=== PATIENT | female | born 1980 | race Caucasian/White ===

== ENCOUNTER 2024-03-09 08:51 | Outpatient (CLI) | payer OTHER, SELFPAY ==
--- NOTE | ~2024-03-09 | MM_ITS ---
EXAMINATION: MM screening l[facility] BI w christofer HISTORY: Screening TECHNIQUE: Craniocaudal and mediolateral oblique 3-D tomosynthesis images were obtained and synthetic 2-D images were generated. CAD analysis was submitted and interpreted. COMPARISON: No prior mammogram is available for comparison at this institution. BREAST PARENCHYMAL COMPOSITION: Dense: The breasts are heterogeneously dense, which may obscure small masses FINDINGS: There is no evidence of suspicious mass, calcification, or architectural distortion to sugg est malignancy in either breast. There has been no suspicious interval change. IMPRESSION: 1. No mammographic evidence of malignancy. 2. Recommend routine screening mammography in one year. BI-RADS Category 1: Negative Reviewed, dictated and finalized at location B. [employer]
== END 2024-03-09 08:52 | disposition home or self-care (01) ==
LOC: ANHIMG 08:55
PROVIDERS: PCP Emergency Medicine; Visit Provider Emergency Medicine
DX: Z12.31 Encounter for screening mammogram for malignant neoplasm of breast (principal)
CPT/HCPCS: 77063; 77067

== ENCOUNTER 2024-03-09 09:41 | Outpatient (CLI) | payer OTHER, SELFPAY ==
[2024-03-09 14:10] LABS: Alanine Aminotransferase 12 U/L (6-35); Alkaline Phosphatase 65 U/L (38-126); Anion Gap 6 mmol/L (4-12); Aspartate Amino Transferase 66 U/L (14-36); Bilirubin,Total 0.5 mg/dL (0.2-1.3); Blood Urea Nitrogen 12 mg/dL (7-17); Calcium 9.2 mg/dL (8.4-10.2); Carbon Dioxide 27 mmol/L (22-30); Chloride 106 mmol/L (98-107); Cholesterol 161 mg/dL (0-200); Estimated Glomerular Filt Rate > 60; Glucose 71 mg/dL (65-110); HDL Direct 67 mg/dL; Potassium 4.4 mmol/L (3.4-5.0); Sodium 139 mmol/L (137-145); Triglycerides 79 mg/dL (<150)
[2024-03-09 14:21] LABS: LDL Cholesterol Direct 67 mg/dL
[2024-03-09 14:33] LABS: Hemoglobin A1C 5.3 % (<5.7)
== END 2024-03-09 09:42 | disposition home or self-care (01) ==
LOC: ANHGOSHLAB 09:42
PROVIDERS: PCP Emergency Medicine; Visit Provider Emergency Medicine
DX: E78.5 Hyperlipidemia, unspecified (principal)
CPT/HCPCS: 36415; 80053; 80061; 83036

== ENCOUNTER 2024-09-08 11:34 | Outpatient (CLI) | payer OTHER, SELFPAY ==
--- OUTSIDE RECORDS SUMMARY | 2024-09-08 11:39 | XMS_ITS | Data Portability ---
Author Organization [facility] blogfoster, Main Office Address [address] [place] [address] Assessment No assessment recorded. Plan of Treatment Reminders Order Date Submit Date Provider Last Modified By Organization Details Last Modified Time Details Appointments None recorded. Lab lipid panel, serum 2022 023 [facility] [place], [address], 3 08:05:44 CMP, serum or plasma 2022 023 [facility] [place], [address], 3 08:05:44 Referral None recorded. Procedures None recorded. Surgeries None recorded. Imaging MAMMO, screening, bilateral 2022 023 [facility], [address] [place] [address] [place], [address], 3 14:58:10 Medication Orders Estarylla 0.25 mg-0.035 mg tablet 2022 023 [facility], [facility], [place], [address], 3 15:54:23 Patient TargetsNo targets recorded. Patient InstructionsNo instructions recorded. Reason for Referral None Reported. Results Created Date Observation Date Name Description Value Unit Range Abnormal Flag Note LastModifiedBy Organization Detail LastModifiedTime 09/09/19 21 09/08/2020 CMP, serum or plasm a sodium 139 mmol/ L 137-14 5 Not Available [facility] (Lab) [address] [place], [address], 09/08/2020 14:15:44 09/09/19 21 09/08/2020 CMP, serum or plasm a potassium 3.9 mmol/ L 3.5-5. 1 Not Available [facility] (Lab) [address] [place], [address], 09/08/2020 14:15:44 09/09/19 21 09/08/2020 CMP, serum or plasm a chloride 105 mmol/ L 98-107 Not Available [facility] (Lab) [address] [place], [address], 09/08/2020 14:15:44 09/09/19 21 09/08/2020 CMP, serum or plasm a carbon dioxide 27 mmol/ L 22-30 Not Available [facility] (Lab) [address] [place], [address], 09/08/2020 14:15:44 09/09/19 21 09/08/2020 CMP, serum or plasm a agap 10.9 mmol/ L 14-22 low Not Available [facility] (Lab) [address] [place], [address], 09/08/2020 14:15:44 09/09/19 21 09/08/2020 CMP, serum or plasm a glucose 87 mg/dL 70-99 Not Available [facility] (Lab) [address] [place], [address], 09/08/2020 14:15:44 09/09/19 21 09/08/2020 CMP, serum or plasm a BUN 12 mg/dL 8-19 Not Available [facility] (Lab) [address] [place], [address], 09/08/2020 14:15:44 09/09/19 21 09/08/2020 CMP, serum or plasm a creatinine 0.78 mg/dL 0.66-1 .25 Not Available [facility] (Lab) [address] [place], [address], 09/08/2020 14:15:44 09/09/19 21 09/08/2020 CMP, serum or plasm a GFR >60 Refer ence Range : [place] ge GFR Healt hy Adult : >60 mL/mi n/1.7 3 m2 Chron ic Kidne y Disea se: 15-60 mL/mi n/1.7 3 m2 Kidne y Failu re: <15/m L/min /1.73 m2 www.n iddk. nih.g ov MDRD study equat ion hasn' t been valid ated in child meagan <18 yrs of age, pregn ant women , the elder ly >85 yrs of age, or in some racia l or ethni c subgr oups, suc as Hispa nics. Outsi de the valid ated stephani eters , estim ated GFR is less accur ate requi ring clini january judgm ent on a case by case basis . Clini january inter preta tion for other races and ages must be made by the clini alexia . Futhe rmore , any of th e limit ation s with the use of serum creat inine relat ed to nutri rose l statu s o r medic ation usage hasn' t accou nted for the MDRD Study equat ion. For perso ns < 18 yrs of age, a pedia tric GFR calcu lator can be locat ed on the [facility] websi te: https ://elle w.kid salome.o rg/pr ofess ional s/kdo qi/gf r_cal culat or Not Available [facility] (Lab) [address] [place], [address], 09/08/2020 14:15:44 09/09/19 21 09/08/2020 CMP, serum or plasm a alkaline phosphatase 58 U/L 38-126 Not Available [facility] (Lab) [address] [place], [address], 09/08/2020 14:15:44 09/09/19 21 09/08/2020 CMP, serum or plasm a alanine aminotransfe rase 6 U/L 0-35 Not Available [facility] (Lab) [address] [place], [address], 09/08/2020 14:15:44 09/09/19 21 09/08/2020 CMP, serum or plasm a aspartate aminotransfe rase 19 U/L 15-37 Not Available [facility] (Lab) [address] [place], [address], 09/08/2020 14:15:44 09/09/19 21 09/08/2020 CMP, serum or plasm a bilirubin, total 0.40 mg/dL 0.20-1 .30 Not Available [facility] (Lab) [address] [place], [address], 09/08/2020 14:15:44 09/09/19 21 09/08/2020 CMP, serum or plasm a calcium 9.2 mg/dL 8.4-10 .2 Not Available [facility] (Lab) [address] [place], [address], 09/08/2020 14:15:44 09/09/1909/08/2020 CMP, serum or plasm a total protein 6.2 g/dL 6.3-8. 2 low Not Available [facility] (Lab) [address] [place], [address], 09/08/2020 14:15:44 09/09/19 21 09/08/2020 CMP, serum or plasm a albumin 4.0 g/dL 3.4-5. 0 Not Available [facility] (Lab) [address] [place], [address], 09/08/2020 14:15:44 09/09/19 21 09/08/2020 CMP, serum or plasm a globulin 2.2 g/dL 2.6-4. 2 low Not Available [facility] (Lab) [address] [place], [address], 09/08/2020 14:15:44 09/09/19 21 09/08/2020 CMP, serum or plasm a A/G ratio 1.8 ratio 1.0-2. 0 Not Available [facility] (Lab) [address] [place], [address], 09/08/2020 14:15:44 09/09/19 21 09/08/2020 lipid panel , serum cholesterol 212 mg/dL 140-19 9 high NIH JAKE NSUS RECOM MENDA TION FOR CANDI STERO L: ADULT CHILD LOW RISK: <200 <170 BORDE RLINE : <200- 239 ----- HIGH RISK: >240 >200 Not Available [facility] (Lab) [address] [place], [address], 09/08/2020 14:15:39 09/09/1909/08/2020 lipid panel , serum triglyceride s 136 mg/dL 0-150 NIH JAKE NSUS REPOR T RECOM MENDA TION FOR TRIGL YCERI KEEGAN: ADULT CHILD LOW RISK: <150 ----- BODER LINE: 150-1 99 ----- HIGH RISK: >200 ----- Not Available [facility] (Lab) [address] [place], [address], 09/08/2020 14:15:39 09/09/1909/08/2020 lipid panel , serum HDL cholesterol 58 mg/dL 40- Not Available [facility] (Lab) [address] [place], [address], 09/08/2020 14:15:39 09/09/19 21 09/08/2020 lipid panel , serum LDL cholesterol, calculated 127 mg/dL 0-130 NIH JAKE NSUS REPOR T RECOM MENDA TIONS FOR LDL: ADULT CHILD LOW RISK <130 <110 (OPTI MAL LDL) <100 ----- SIERRA RLINE : 130-1 59 ----- HIGH RISK: >160 >130 A TRIGL YCERI DE RESUL T >400 INVAL IDATE S THE CALCU LATIO N FOR LDL FRACT IONAT ION - THE LDL RESUL T WILL NOT BE REPOR LEFTY. Not Available [facility] (Lab) [address] [place], [address], 09/08/2020 14:15:39 11/08/19 23 11/09/2022 LIPID PANEL (REFL ) cholesterol, total 242 mg/dL <200 high Not Available [facility] [address] [address] [place], [address], 11/09/2022 11:25:02 11/08/19 23 11/09/2022 LIPID PANEL (REFL ) HDL cholesterol 55 mg/dL > or = 50 normal Not Available [facility] [address] [address] [place], [address], 11/09/2022 11:25:02 11/08/19 23 11/09/2022 LIPID PANEL (REFL ) triglyceride s 147 mg/dL <150 normal Not Available [facility] [address], [address], 11/09/2022 11:25:02 11/08/19 23 11/09/2022 LIPID PANEL (REFL ) LDL-choleste rol 160 mg/dL _(january c) high Refer ence range : <100 Linda able range <100 mg/dL for prima ry preve ntion ; <70 mg/dL for patie nts with CHD or diabe tic patie nts with > or = 2 CHD risk facto rs. LDL-C is now calcu lated using the Beth n-Hop kins calcu latdann n, which is a valid ated novel nora finnegan r accur acy than the Fried girma equat ion in the estim ation of LDL-C . Beth schneider SS et al. DIGNA. 2013; 310(1 9): 2061- 2068 (http ://ed ucati on.Qu estDi kory tics. com/f aq/FA Q164) Not Available [address] [address] [place], [address], 11/09/2022 11:25:02 11/08/19 23 11/09/2022 LIPID PANEL (REFL ) chol/HDLC ratio 4.4 (calc ) <5.0 normal Not Available [address] [address] [address] , [place], [address], 11/09/2022 11:25:02 11/08/19 23 11/09/2022 LIPID PANEL (REFL ) non HDL cholesterol 187 mg/dL _(january c) <130 high For patie nts with diabe sudeep plus 1 major ASCVD risk facto r, treat ing to a non-H DL-C goal of <100 mg/dL (LDL- C of <70 mg/dL ) is consi dered a thera peuti c optio n. Not Available [address], [address], 11/09/2022 11:25:02 11/08/19 23 11/09/2022 SPECI MEN INTEG RITY COMPR OMISE D specimen integrity compromised Whole blood , unspu n or parti ally spun gel barri er tube was recei jody more than 6 hours since colle ction . A false eleva tion of K, Phos and LD as well as a false decre ase in gluco se may occur due to prolo nged conta ct with red cells . Not Available [facility] [address] [address] [place], [address], 11/09/2022 11:25:04 11/08/19 23 11/09/2022 COMPR EHENS LAURA METAB OLIC PANEL glucose 43 mg/dL 65-99 low Fasti ng refer ence inter griffin Not Available [facility] [address] [address] [place], [address], 11/09/2022 11:25:04 11/08/19 23 11/09/2022 COMPR EHENS LAURA METAB OLIC PANEL urea nitrogen (BUN) 6 mg/dL 7-25 low Not Available [address], [address], 11/09/2022 11:25:04 11/08/19 23 11/09/2022 COMPR EHENS LAURA METAB OLIC PANEL creatinine 0.91 mg/dL 0.50-0 .99 normal Not Available [address], [address], 11/09/2022 11:25:04 11/08/19 23 11/09/2022 COMPR EHENS LAURA METAB OLIC PANEL eGFR 81 mL/mi n/1.7 3m2 > or = 60 normal Not Available [address], [address], 11/09/2022 11:25:04 11/08/19 23 11/09/2022 COMPR EHENS LAURA METAB OLIC PANEL BUN/creatini ne ratio 7 (calc ) 6-22 normal Not Available [address], [address], 11/09/2022 11:25:04 11/08/19 23 11/09/2022 COMPR EHENS LAURA METAB OLIC PANEL sodium 142 mmol/ L 135-14 6 normal Not Available [address], [address], 11/09/2022 11:25:04 11/08/19 23 11/09/2022 COMPR EHENS LAURA METAB OLIC PANEL potassium 4.1 mmol/ L 3.5-5. 3 normal Not Available [address], [address], 11/09/2022 11:25:04 11/08/19 23 11/09/2022 COMPR EHENS LAURA METAB OLIC PANEL chloride 106 mmol/ L 98-110 normal Not Available [address], [address], 11/09/2022 11:25:04 11/08/19 23 11/09/2022 COMPR EHENS LAURA METAB OLIC PANEL carbon dioxide 24 mmol/ L 20-32 normal Not Available [address], [address], 11/09/2022 11:25:04 11/08/19 23 11/09/2022 COMPR EHENS LAURA METAB OLIC PANEL calcium 9.0 mg/dL 8.6-10 .2 normal Not Available [address], [address], 11/09/2022 11:25:04 11/08/19 23 11/09/2022 COMPR EHENS LAURA METAB OLIC PANEL protein, total 5.9 g/dL 6.1-8. 1 low Not Available [address], [address], 11/09/2022 11:25:04 11/08/19 23 11/09/2022 COMPR EHENS LAURA METAB OLIC PANEL albumin 4.0 g/dL 3.6-5. 1 normal Not Available [address], [address], 11/09/2022 11:25:04 11/08/19 23 11/09/2022 COMPR EHENS LAURA METAB OLIC PANEL globulin 1.9 g/dL_ (calc ) 1.9-3. 7 normal Not Available [address], [address], 11/09/2022 11:25:04 11/08/19 23 11/09/2022 COMPR EHENS LAURA METAB OLIC PANEL albumin/glob ulin ratio 2.1 (calc ) 1.0-2. 5 normal Not Available [address], [address], 11/09/2022 11:25:04 11/08/19 23 11/09/2022 COMPR EHENS LAURA METAB OLIC PANEL bilirubin, total 0.5 mg/dL 0.2-1. 2 normal Not Available [address] [address] [place], [address], 11/09/2022 11:25:04 11/08/19 23 11/09/2022 COMPR EHENS LAURA METAB OLIC PANEL alkaline phosphatase 58 U/L 31-125 normal Not Available [address] [address] [place], [address], 11/09/2022 11:25:04 11/08/19 23 11/09/2022 COMPR EHENS LAURA METAB OLIC PANEL AST 14 U/L 10-30 normal Not Available [address] [address] [place], [address], 11/09/2022 11:25:04 11/08/19 23 11/09/2022 COMPR EHENS LAURA METAB OLIC PANEL ALT 7 U/L 6-29 normal Not Available [address] [address] [place], [address], 11/09/2022 11:25:04 09/09/19 21 09/08/2020 MAMMO , scree evgeny, digit al, bilat eral No observ ation record ed. [id number] [facility] (Imaging) [address] [place], [address], 06/06/2022 06:48:57 09/09/19 21 MAMMO , scree evgeny, digit al, bilat eral [facility] [address] [place] [address] Patien t Name: ANNE-MARIE LAURA Access ion #: [id number] Sex: F : 1980 6 Locati on: MO2 Attend ing Physic cyndi: DANIELLE STERLING RUNDA Orderi ng Physic cyndi: DANIELLE STERLING, JESSICADA Exam Date: 09/09/19 8:05 AM Exam Name: DIGITA L YENY BILAT SCREEN Admitt ing Diagno sis(es ): RADIOL OGY REPORT - FINAL EXAM: MG DIGITA L YENY BILAT SCREEN HISTOR Y: Screen ing mammog kianna COMPAR [place]: Baseli ne TECHNI QUE: Bilate ral CC and MLO views of the breast s were perfor med. Digita l Mammog silvio images were obtain ed. CAD (compu ter assist ed detect ion) was utiliz ed. FINDIN GS: The breast s are hetero geneou sly dense, which may obscur e small masses . Right breast : There is an area of asymme tric fibrog landul ar densit y within the deep supero latera l aspect of the or right breast . Page 1 of 2 [facility] Pati t Name: ANNE-MARIE LAURA Access ion #: [id number] Sex: F : 1980 6 Exam Date: 09/09/19 8:05 AM Exam Name: DIGITA L YENY BILAT SCREEN Admitt ing Diagno sis(es ): Left breast : There is an area of asymme try noted on the cranio caudad view and centra lly on the cranio caudad view. IMPRES ISAAC: BIRADS 0: Assess ment incomp lete. Need additi onal imagin g evalua tion. Recomm end additi onal imagin g of the areas of asymme try within the right left breast . If the asymme tries within either the left or the right breast persis t, ultras ound should be perfor med. Create d and electr onical ly signed by: Donte hendricks MD Signed Date: 09/09/19 10:11 AM (CT) Dictat ed by: Donte hendricks MD (CT) (CT) Page 2 of 2 [id number] [facility] (Imaging) [address] [place], [address], 06/06/2022 06:48:57 10/15/19 21 10/14/2020 imagi ng/di agnos tic resul t No observ ation record ed. [id number] [facility] [address], [place], [address], 06/06/2022 06:48:57 12/07/19 21 diagn ostic /asiya speci al views [facility] [address], [place] [address] Patien t Name: PONCHO Schneider ANNE-MARIE R Access ion #: [id number] Sex: F : 1980 8 Locati on: RA2 Attend ing Physic cyndi: ELKHAT IB, RUNDA Orderi ng Physic cyndi: ELKHAT IB, RUNDA Exam Date: 021 10:43 AM Exam Name: MG DIAG BILAT SPECIA L VIEW Admitt ing Diagno sis(es ): RADIOL OGY REPORT - FINAL EXAM: MG DIAG BILAT SPECIA L VIEW HISTOR Y: abnorm al mammog kianna 40-yea r-old female with bilate ral breast asymme try seen on screen ing mammog silvio. COMPAR [place]: 2020 TECHNI QUE: Bilate ral breast spot compre ssion views were perfor med. Digita l Mammog silvio images were obtain ed. FINDIN GS: The bilate ral breast asymme tries seen on recent mammog silvio resolv es with spot compre ssion. No suspic ious findin gs are identi fied here. IMPRES ISAAC: Page 1 of 2 [facility] Patien t Name: FARHANNIKO NaunANNE-MARIE Access ion #: [id number] Sex: F : 1980 8 Exam Date: 021 10:43 AM Exam Name: MG DIAG BILAT SPECIA L VIEW Admitt ing Diagno sis(es ): BI-RAD S 1. Negati ve. Recomm end return ing to annual screen ing mammog silvio. Accord ing to the [employer], yearly mammog edita are recomm ended starti ng at age 40 and contin uing as long as the woman is in good health . Clinic al Breast Exam should be part of the period ic health exam-a bout every 3 years for women in their 20s and 30s and every year for women 40 and over. Breast self-e xam is an option for women in their 20s. Any breast change noted on the breast self-e xam she would be report ed prompt ly to the jason thakur's the [facility] er. A negati ve mammog silvio report should not discou rage follow -up or biopsy of a clinic ally signif icant findin g and/or abnorm ality. Dense breast tissue may obscur e small neopla sms. This jason thakur has been entere d into a mammog silvio remind er system with a target date for her next mammog kianna. Create d and electr onical ly signed by: Sabas ramos MD Signed Date: 11:10 AM (CT) Dictat ed by: Sabas ramos MD DD: 11:10 AM (CT) DT: 11:10 AM (CT) Page 2 of 2 [id number] [facility] (Imaging) [address] [place], [address], 06/06/2022 06:48:57 12/07/19 21 12/06/2020 MAMMO , diagn ostic , bilat eral No observ ation record ed. [id number] [facility] [address] [place], [address], 06/06/2022 06:48:57 11/02/19 23 MAMMO , scree evgeny, digit al, bilat eral [facility] [address] [place] [address] [phone] Jason thakur Name: ANNE-MARIE LAURA Access ion #: [id number] Sex: F : 1980 9 Dictat ed By: Fernando ewing Attend ing Physic cyndi: ELKHAT IB, RUNDA Orderi ng Physic cyndi: ELKHAT IB, RUNDA Exam Date: 2022 12:46 PM Exam Name: MG BECCA Lawrence YENY BILAT SCREEN Admitt ing Diagno sis(es ): CLINIC AL HISTOR Y: Screen ing exam, no breast compla ints. No person al histor y of breast cancer or prior breast interv ention . Family histor y of breast cancer in her matern al grandm other at 85 and matern al aunt at age 60. COMPAR [place]: Prior mammog kianna dated 021. TECHNI QUE: Full field bilate ral becca l mammog silvio was perfor med in the CC and MLO projec tions. CAD was utiliz ed. FINDIN GS: The breast s are hetero geneou sly dense, which may obscur e small masses (categ ory C). No suspic ious mass, terrance ectura l distor tion, or suspic ious microc alcifi cation s are seen. The axilla e, skin and nipple s are normal . IMPRES ISAAC: Normal mammog kianna. RECOMM ENDATI ONS: In the absenc e of new breast compla ints, annual screen ing is recomm ended. The patien t will be notifi ed of the mammog silvio result s per hospit al protoc ol. BI-RAD S CATEGO RY: 1: Negati ve. Electr onical ly Signed by: Fernando ewing at 2022 13:48: 57 PM Page [address] (Imaging) [address] [place], [address], 11/02/2022 09:02:13 11/02/19 23 11/01/2022 MAMMO , scree evgeny, bilat eral No observ ation record ed. [address] [place], [address], 11/02/2022 09:02:14 Result Notes None recorded. Problems Name Problem SNOMED Code Status Onset Date Resolution Date Notes Provider Name and Address Organization Details Recorded Time Gastroenteriti s 29206554 Active Not Available [facility] 3 07:55:36 Depressive disorder 32290757 Active Not Available [facility] 3 07:55:36 Pain of multiple joints 07555873 Active Not Available [facility] 3 07:55:36 Eczema 62420602 Active Not Available [facility] 3 07:55:36 Anxiety 45294976 Active Not Available [facility] 3 07:55:36 Hemorrhoids 53509945 Active Not Available [facility] 3 07:55:36 Neck pain 75673801 Active Not Available [facility] 3 07:55:36 Hyperlipidemia 24026884 Active 2022 Not Available [facility] 3 07:55:36 Problem Notes None recorded. Procedures Surgical History Date Name Laterality Status Provider Name and Address Organization Details Recorded Time Dilation and curettage completed Not Available [facility] 06/06/2022 06:39:07 Imaging Results None recorded. Procedure Notes None recorded. Medical Equipment None Reported. Medications Name Sig Start Date Stop Date Status Note LastModified by Organization Details LastModified Time atorvastati n 10 mg tablet Take 1 tablet every day by oral route. active Not Available Not Available No t Available azithromyci n 250 mg tablet TAKE 2 TABLETS BY MOUTH TODAY, THEN TAKE 1 TABLET DAILY FOR 4 DAYS 01/21 completed Not Available Not Available Not Available amoxicillin 875 mg tablet 01/21 completed Not Available Not Available Not Available alprazolam 0.25 mg tablet Take 1 tablet(s) 3 times a day by oral route as needed. active Not Available Not Available No t Available norgestimat e-ethinyl estradiol 0.18mg/0.21 5mg/0.25mg- 0.035mg(28) tablet 1 po daily active Not Available Not Available No t Available azelastine 137 mcg (0.1 %) nasal spray INHALE 1 SPRAY IN EACH NOSTRIL EVERY 12 HOURS 01/21 completed Not Available Not Available Not Available Cheratussin AC 10 mg-100 mg/5 mL oral liquid TAKE 10ML BY MOUTH EVERY 6 HOURS 01/21 completed Not Available Not Available Not Available Anusol-HC 25 mg rectal suppository Insert 1 supposito ry 3 times a day by rectal route for 14 days. 03/04 completed Not Available Not Available Not Available Hypercare 20 % topical solution APPLY ONCE EVERY DAY BY TOPICAL ROUTE 01/21 completed Not Available Not Available Not Available bupropion HCl XL 300 mg 24 hr tablet, extended release Take 1 tablet every day by oral route. 06/11 completed Not Available Not Available Not Available bupropion HCl XL 150 mg 24 hr tablet, extended release Take 1 tablet every day by oral route. 06/11 completed Not Available Not Available Not Available Estarylla 0.25 mg-0.035 mg tablet TAKE 1 TABLET DAILY active Not Available Not Available No t Available Vitals Date Recorded Body mass index (BMI) Body height Oxygen saturation Oxygen saturation in Arterial blood by Pulse oximetry Heart rate Body temperature Body weight Systolic blood pressure Diastolic blood pressure Provider Name and Address Organization Details Last Updated DateTime 1 28.1 kg/m2 167.64 cm 98 % 98 % 79 /min 97.4 [degF] 06952.0 7 g 122 mm[Hg] 78 mm[Hg] Not Available [facility] 3 06:40:00 Date Recorded Body height Body mass index (BMI) Body weight Body temperature Heart rate Oxygen saturation Oxygen saturation in Arterial blood by Pulse oximetry Systolic blood pressure Diastolic blood pressure Provider Name and Address Organization Details Last Updated DateTime 3 167.64 cm 28.2 kg/m2 64183.6 6 g 97.7 [degF] 78 /min 99 % 99 % 102 mm[Hg] 80 mm[Hg] FRANCISCA Noel [place] - [facility] [place] [facility] 3 15:42:09 Social History Question Answer Notes LastModified by Organizat ion Details LastModified Time Tobacco Smoking Status Never Smoker Not Available [facility] 06/06/2022 06:38:49 In The 14 Days Before Symptom Onset, Have You Had Close Contact With A Laboratory-confirm ed COVID-19 While That Case Was Ill? No [id number] Information not available 06/06/2022 In The 14 Days Before Symptom Onset, Have You Had Close Contact With A Person Who Is Under Investigation For COVID-19 While That Person Was Ill? No [id number] Information not available 06/06/2022 Which Illicit Or Recreational Drugs Have You Used? Marijuana [id number] Information not available 06/06/2022 Sex: Unknown Functional Status Question Answer Note LastModified by Organizat ion Details LastModified Time What is your level of alcohol consumption? Occasional [id number] Information not available 06/06/2022 Mental Status None recorded. Family History Relationship Description Onset Age of this Age Resolved Age Notes LastModified by Organization Details LastModified Time Maternal Grandmother Family history of malignant neoplasm breast and gland [id number] Not available 06/06/2022 06:39:09 Maternal Aunt Family history of malignant neoplasm breast [id number] Not available 06/06/2022 06:39:09 Medical History No medical history recorded. Gynecological HistoryNo gynecological history recorded. Obstetrics History GPAL:G 0 P 0 0 0 0 Past Encounters Encounter ID Performer Location Encounter Start Date Encounter Closed Date Diagnosis/Indication Diagnosis SNOMED-CT Code Diagnosis ICD10 Code Diagnosis Note [id number] Tamara Davison MD [facility] Artem mackenzie [address] [place] [address] 08/29/2020 00:00:00 08/29/2020 20:55:55 [id number] Tamara Davison MD [facility] Artem mackenzie [address] [place] [address] 10/30/2022 15:28:32 10/30/2022 16:16:03 Adult health examination [id number] Z00.00 Hyperlipidemia 18324090 E78.5 Screening for malignant neoplasm of breast 205018188 Z12.[address] [facility] [id number] Z30.9 Health Concerns Section Related Observation LastModified by Organization Detai ls LastModified Time None Recorded Concern Status LastModified by Organization Details LastModified Time None Recorded Advance Directives Directive None Recorded Payers Encounter Date Sequence Insurance Name Policy Number Policy Solo Covered Member ID Solo Member ID Guarantor Name 10/30/2022 1 [employer] [id number] Pradeep Lindo [id number] Anne-Marie Lindo Notes Date Note Type Note Provider Name and Address Organization Details Recorded Time 10/30/2022 text/html Here today for annual physical. Will be due for [employer] next year. Last pap was 08/26. Mammogram is due. MGM had colon cancer needs colonoscopy in 3 years. Is due for JULIA Davison MD [address] [place] [address], [place] [address], [place], [address], [place] [facility] 10/30/2022 21:15:39 OBGyn Episode No OBEpisode recorded.
--- OUTSIDE RECORDS SUMMARY | 2024-09-08 11:39 | XMS_ITS | Clinical Summary ---
Author Organization [facility] Address [address] [address] Phone Care Team Providers Care Stewarding Supervisor Name Role Phone Eric Lyles Primary Care Provider Unavaila ble Allergies No known active allergies Medications PREVIFEM 0.25-35 MG-MCG Tablet 07/16/2016 Activ e Omeprazole 20 MG Tablet Delayed Response Take by mouth. Active Social History Tobacco Use Types Packs/Day Years Used Date Smoking Tobacco: Some Days Cigarettes 0.1 15 Tobacco Cessation:Ready to Q uit: Yes; Counseling Given: Yes Alcohol Use Standard Drinks/Week Comments No 1 (1 standard drink = 0.6 oz pur e alcohol) Comments Unknown Sex and Gender Information Value Date Recorded Sex Assigned at Not on file Legal Sex Female 8:51 PM CDT Gender Identity Not on file Sexual Orientation Not on file Last Filed Vital Signs Vital Sign Reading Time Taken Comments Blood Pressure 118/82 08/29/2016 1:45 PM CDT Pulse 72 08/29/2016 1:45 PM CDT Temperature - - Respiratory Rate 18 08/29/2016 1:45 PM CDT Oxygen Saturation 96% 08/29/2016 1:45 PM CDT Inhaled Oxygen Concentration - - Weight 66 kg (145 lb 6.4 oz) 08/29/2016 1:45 PM CDT Height 167.6 cm (5' 6) 08/29/2016 1:45 PM CDT Body Mass Index 23.47 08/29/2016 1:45 PM CDT Plan of Treatment Health Maintenance Due Date Last Done Comments Hepatitis C Virus (HCV) Screening 1980 TdaP Immunization 1980 Hepatitis B Immunization (1 of 3 - 19+ 3-dose series) 08/22/1999 Pap Smear 2001 Cervical Cancer Screening (CCS) 2010 HPV/Cotest 2010 Discussion re Starting/Frequ ency of Mammograms 2020 Influenza Immunization (#1) 2023 SARS-COV-2 Immunization ( season) 2023 Respiratory Syncytial Virus (RSV) Immunization (Adult) (1 - 1-dose 75+ series) 08/22/2055 Meningococcal Immunization (ACWY) Aged Out No longer eligible based on patient's age to complete this topic Pneumococcal Immunization Combined Aged Out No longer eligible based on patient's age to complete this topic Rotavirus Immunization Aged Out No lo nger eligible based on patient's age to complete this topic Care Teams Stewarding Supervisor Relationship Specialty Start Date End Date Eric Lyles PCP - General Internal Medicine 08/06/16
[2024-09-08 19:13] LABS: Hematocrit 42.5 % (37.0-47.0); Hemoglobin 13.5 g/dL (12.0-15.0); Mean Corpuscular HGB Conc 31.8 g/dl (32-36); Mean Corpuscular Hemoglobin 28.9 pg (26-34); Mean Platelet Volume 11.2 fl (7.4-10.4); Platelet Count Result 209 k/mm3 (150-375); Red Blood Count 4.67 M/mm3 (4.2-5.4); Red Cell Distribution Width 13.8 % (11.5-14.5); White Blood Count 9.2 K/mm3 (4.5-10.0)
[2024-09-08 19:56] LABS: Iron 101 ug/dL (37-170)
[2024-09-08 20:06] LABS: Percent Iron Saturation 28 % (20-50)
[2024-09-08 21:26] LABS: Ferritin 9.67 ng/mL (6.24-137)
[2024-09-08 22:19] LABS: Alanine Aminotransferase 11 U/L (6-35); Albumin Level 3.7 g/dL (3.5-5.1); Alkaline Phosphatase 65 U/L (38-126); Anion Gap 3 mmol/L (4-12); Aspartate Amino Transferase 27 U/L (14-36); Bilirubin,Total 0.5 mg/dL (0.2-1.3); Blood Urea Nitrogen 9 mg/dL (7-17); Calcium 9.4 mg/dL (8.4-10.2); Carbon Dioxide 27 mmol/L (22-30); Chloride 108 mmol/L (98-107); Cholesterol 160 mg/dL (0-200); Estimated Glomerular Filt Rate > 60; Glucose 90 mg/dL (65-110); HDL Direct 65 mg/dL; Potassium 4.7 mmol/L (3.4-5.0); Sodium 138 mmol/L (137-145); Total Protein 6.1 g/dL (6.3-8.2); Triglycerides 86 mg/dL (<150)
[2024-09-08 22:24] LABS: Vitamin D 25 Hydroxy 17.1 ng/mL
[2024-09-08 22:30] LABS: LDL Cholesterol Direct 68 mg/dL
[2024-09-08 23:25] LABS: Folic Acid 15.4 ng/mL (2.76->20)
[2024-09-08 23:35] LABS: Hemoglobin A1C 5.2 % (<5.7)
[2024-09-12 15:17] LABS: Vitamin B2 7.7 nmol/L (6.2-39.0)
[2024-09-13 12:48] LABS: Vitamin B1 10 nmol/L (8-30)
== END 2024-09-08 11:35 | disposition home or self-care (01) ==
LOC: ANHGOSHLAB 11:35
PROVIDERS: PCP Nurse Practitioner Family; Visit Provider Nurse Practitioner Family
DX: Z76.89 Persons encountering health services in other specified circumstances (principal); N94.10 Unspecified dyspareunia; R53.83 Other fatigue; Z30.9 Encounter for contraceptive management, unspecified; E66.3 Overweight; E78.5 Hyperlipidemia, unspecified; E56.9 Vitamin deficiency, unspecified; E61.1 Iron deficiency
CPT/HCPCS: 36415; 80053; 80061; 82306; 82607; 82728; 82746; 83036; 83540; 83550; 84207; 84252; 84425; 84443; 85027

== ENCOUNTER 2024-09-30 13:21 | Outpatient (CLI) | payer OTHER, SELFPAY ==
--- NOTE | ~2024-09-30 | US_ITS ---
EXAM: PELVIC ULTRASOUND HISTORY: N94.10 - Unspecified dyspareunia COMPARISON: None. FINDINGS: UTERUS: 9.9 x 5.0 x 5.5 cm. The endometrial complex measures 5 mm. RIGHT OVARY: Despite prolonged interrogation, the right ovary was not visualized LEFT OVARY: The left ovary is heterogeneous in echogenicity and increased in size measuring 4.3 x 2.5 x 3.2 cm. Dopplerable flow is identified. A single anechoic avascular focus is identified within the left ovary measuring 31 x 20 x 25 mm, repr esenting a simple cyst for which no further follow-up is needed (does not meet size criteria). Trace free fluid is identified within the posterior cul-de-sac. IMPRESSION: The uterus is unremarkable. Despite prolonged interrogation, the right ovary was not visualized. Left ovarian simple cyst measuring 31 mm in greatest dimension, for which no further follow-up is nee ded Reviewed, dictated and finalized at location A. IMPRESSION: The uterus is unremarkable. Despite prolonged interrogation, the right ovary was not visualized. Left ovarian simple cyst measuring 31 mm in greatest dimension, for which no fu rther follow-up is needed
== END 2024-09-30 13:22 | disposition home or self-care (01) ==
LOC: MICIMG 13:22
PROVIDERS: PCP Nurse Practitioner Family; Visit Provider Nurse Practitioner Family
DX: N83.292 Other ovarian cyst, left side (principal); N94.10 Unspecified dyspareunia; R10.2 Pelvic and perineal pain
CPT/HCPCS: 76830